=== PATIENT | female | born 1980 | race American Indian/Alaskan Native ===

== ENCOUNTER 2017-01-11 16:19 | Emergency (ER) | payer OTHER ==
[2017-01-11 16:39] VITALS: BP 117/75
[2017-01-11] MEDS ORDERED: MOTRIN PO ONE (18:39)
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
== END 2017-01-11 20:24 | disposition home or self-care (01) ==
LOC: ED 16:19
DX: S39.012A Strain of muscle, fascia and tendon of lower back, initial encounter (principal); S13.4XXA Sprain of ligaments of cervical spine, initial encounter; V89.2XXA Person injured in unspecified motor-vehicle accident, traffic, initial encounter; Y93.89 Activity, other specified; Y92.89 Other specified places as the place of occurrence of the external cause; Y99.8 Other external cause status
CPT/HCPCS: 99283

== ENCOUNTER 2017-09-06 11:02 | Emergency (ER) | payer SELFPAY ==
[2017-09-06 11:34] VITALS: BP 120/72
--- NOTE | 2017-09-06 13:42 | Emergency Department Report ---
HPI - General Chief Complaint: Headache Time Seen by Provider: 09/06/17 13:20 - HPI HPI: 37-year-old demented female presents to the emergency department with complaint of a 1.5 week history of some intermittent headaches and intermittent dizziness. She says that when the headaches occur that they're quite painful and are sometimes responsive to ibuprofen. She also says that when she gets dizziness/lightheadedness sometimes it feels as if the world is spinning and that she might fall down. However currently the patient says that she is asymptomatic. There are no known aggravating factors that initiate the symptoms. She denies any vision change, slurred speech or any other neurological deficits. She denies any past medical history. She does not have a primary care physician. She denies any tobacco or illicit drug use. ED Past Medical Hx - Past Medical History Previous Medical History?: No - Surgical History Past Surgical History?: No - Social History Smoking Status: Never Smoker Substance Use Type: None - Medications Home Medications: Home Medications Medication Instructions Recorded Confirmed Last Taken Type Cyclobenzaprine [Flexeril] 10 mg PO TID PRN #15 tablet 01/11/17 Unknown Rx Ibuprofen [Motrin 600 MG tab] 600 mg PO Q8H PRN #15 tablet 01/11/17 Unknown Rx Meclizine [Antivert] 12.5 mg PO BID PRN #20 tablet 09/06/17 Unknown Rx ED Review of Systems ROS: Stated complaint: MCGINNIS/DIZZY Other details as noted in HPI Comment: All other systems reviewed and negative Constitutional: denies: chills, fever Eyes: denies: eye pain, eye discharge, vision change ENT: denies: ear pain, throat pain Respiratory: denies: cough, shortness of breath, wheezing Cardiovascular: denies: chest pain, palpitations Gastrointestinal: denies: abdominal pain, nausea, diarrhea Genitourinary: denies: urgency, dysuria, discharge Musculoskeletal: denies: back pain, joint swelling, arthralgia Skin: denies: rash, lesions Neurological: headache (intermittent), vertigo, other (intermittent dizziness) Physical Exam - Physical Exam Vital Signs: Vital Signs 09/06/17 11:31 Temperature 98.5 F Pulse Rate 82 Respiratory 16 Rate Blood Pressure 120/72 O2 Sat by Pulse 99 Oximetry Physical Exam: GENERAL: The patient is well-developed well-nourished. HENT: Normocephalic. Atraumatic. Patient has moist mucous membranes. EYES: Extraocular motions are intact. Pupils equal reactive to light bilaterally. No nystagmus. NECK: Supple. Trachea is midline. CHEST/LUNGS: Clear to auscultation. There is no respiratory distress noted. HEART/CARDIOVASCULAR: Regular. There is no tachycardia. There is no murmur. ABDOMEN: Abdomen is soft, nontender. Patient has normal bowel sounds. There is no abdominal distention. SKIN: Skin is warm and dry. NEURO: The patient is awake, alert, and oriented. The patient is cooperative. The patient has no focal neurologic deficits. The patient has normal speech and gait. Cranial nerves II through XII grossly intact. No pronator drift. No dysmetria. MUSCULOSKELETAL: There is no tenderness or deformity. There is no limitation range of motion. There is no evidence of acute injury. ED Course Vital Signs 09/06/17 11:31 Temperature 98.5 F Pulse Rate 82 Respiratory 16 Rate Blood Pressure 120/72 O2 Sat by Pulse 99 Oximetry ED Medical Decision Making - Medical Decision Making Patient is currently a symptomatically with her complaints and/or symptoms. She complains of some intermittent headaches but does not appear to have any focal, motor or sensory deficits in her cranial nerves are intact. She complains of some intermittent dizziness and/or vertigo-like symptoms. I will treat her with some Antivert that she can take when the dizziness and/or vertigo -like symptoms occur. Since she is not currently having any headaches and does not have any deficits, did not feel that CT imaging of the head is necessary at this time. Vital signs stable including being afebrile. She will be discharged home with referrals for both primary care and a neurologist. She has been encouraged to return to the ER with any worsening of her symptoms or any acute distress. - Differential Diagnosis vertigo, hypothyroid, URI, Mnire's disease Critical Care Time: No Critical care attestation.: If time is entered above; I have spent that time in minutes in the direct care of this critically ill patient, excluding procedure time. ED Disposition Clinical Impression: Intermittent headache, Dizziness, Vertigo Disposition: DC-01 TO HOME OR SELFCARE Is pt being admited?: No Condition: Stable Instructions: Dizziness (ED), Vertigo (ED), Acute Headache (ED) Additional Instructions: Please follow up with a primary care physician in the next few days. I have given you a referral for a local neurologist, Dr. Del Valle, to follow up regarding your intermittent headaches and some dizziness. Return to the emergency department immediately with any worsening of her symptoms or any acute distress. Prescriptions: Meclizine [Antivert] 12.5 mg PO BID PRN #20 tablet PRN Reason: Vertigo Referrals: LOGAN DEL VALLE MD [Staff Physician] - 3-5 Days JAZMIN GARCIA MD [Staff Physician] - 3-5 Days WARD RIZO MD [Staff Physician] - 3-5 Days Time of Disposition: 13:42
== END 2017-09-06 13:51 | disposition home or self-care (01) ==
LOC: ED 11:02
DX: R51 Headache (principal); R42 Dizziness and giddiness
CPT/HCPCS: 99282

== ENCOUNTER 2017-11-29 08:42 | Emergency (ER) | payer OTHER ==
[2017-11-29 08:49] VITALS: BP 102/64
--- NOTE | 2017-11-29 09:45 | Emergency Department Report ---
HPI - General Chief Complaint: Allergic Reaction Time Seen by Provider: 11/29/17 09:43 - HPI HPI: Patient reported cold symptoms with sore throat for 3 days. Report was within cotton then noted that the sore throat pain and cold symptoms worsen. She says she has seasonal allergies but she was not having any nasal congestion or runny nose prior to this within cotton at her child graduation. Denies any cough, shortness of breath or chest pain. Denies any headache. Sore throat 5 out of 10, feels scratchy, worse with swallowing. She says she took Motrin that did not help. Nothing makes pain to throat better. Patient also reports postnasal drainage ED Past Medical Hx - Past Medical History Previous Medical History?: Yes Additional medical history: Seasonal allergies - Surgical History Past Surgical History?: No - Family History Family history: no significant - Social History Smoking Status: Never Smoker Substance Use Type: Non Opiate Pain, Other Other Social History: Patient is and lives with family - Medications Home Medications: Home Medications Medication Instructions Recorded Confirmed Last Taken Type Cyclobenzaprine [Flexeril] 10 mg PO TID PRN #15 tablet 01/11/17 Unknown Rx Ibuprofen [Motrin 600 MG tab] 600 mg PO Q8H PRN #15 tablet 01/11/17 Unknown Rx Meclizine [Antivert] 12.5 mg PO BID PRN #20 tablet 09/06/17 Unknown Rx Cetirizine HCl [ZyrTEC] 10 mg PO QAM 14 Days #14 capsule 11/29/17 Unknown Rx Fluticasone [Flonase] 1 spray NS QDAY 14 Days #1 bottle 11/29/17 Unknown Rx ED Review of Systems ROS: Stated complaint: ALLERGIC REACTION Other details as noted in HPI Comment: All other systems reviewed and negative Constitutional: denies: chills, fever Eyes: denies: eye pain, eye discharge ENT: throat pain, congestion (runny nose). denies: ear pain, dental pain Respiratory: denies: cough, shortness of breath, SOB with exertion, SOB at rest , stridor, wheezing Cardiovascular: denies: chest pain, palpitations, edema, syncope Gastrointestinal: denies: abdominal pain, nausea, vomiting Musculoskeletal: denies: back pain, joint swelling, arthralgia Skin: denies: rash, pruritus Neurological: denies: headache, abnormal gait, vertigo Physical Exam - Physical Exam Vital Signs: Vital Signs 11/29/17 08:45 Temperature 98.2 F Pulse Rate 76 Respiratory 18 Rate Blood Pressure 102/64 O2 Sat by Pulse 100 Oximetry General: This is a 37-year-old female well-nourished well-developed in no acute distress. Physical Exam: Head: Normocephalic atraumatic Ears:BIateral TM congested without erythema and loss of bony landmarks. Hans EAC with normal exam. No mastoid bone tenderness. Mouth: Moist, no pharyngeal erythema or exudate . UVULA midline and oral airways patent. No peritonsillar abscess. Tongue is normal Neck: Nontender to palpate, supple, normal range of motion. No adenopathy. No c- spine tenderness. Nose: Bilateral nasal mucosa pale and boggy with clear drainage. Maxillary and frontal sinuses non-tender to palpate. Eyes: Bilateral Sclerae and conjunctiva without injection. Bilateral pupils equal and reactive to light. Bilateral lids are normal. Normal accommodation.BEOMI Lungs: Clear to auscultate bilaterally, no rhonchi wheezes or rales. Normal work of breathing and no chest wall tenderness CV: S1, S2. Regular rate and rhythm negative murmur. Capillary refill is less than 3 seconds Abdomen: Nontender to palpation in all quadrants: No guarding or rebound tenderness. Positive bowel sounds in all quadrants Extremity: No clubbing, cyanosis or edema. +2 pulses in all extremities and no neurovascular compromise Skin: Clean dry and intact, no rashes or lesions Psych: Normal mood and behavior ED Course Vital Signs 11/29/17 08:45 Temperature 98.2 F Pulse Rate 76 Respiratory 18 Rate Blood Pressure 102/64 O2 Sat by Pulse 100 Oximetry - Reevaluation(s) Reevaluation #1: 11/29/17 11:06 Patient given Deltasone 60 mg by mouth for allergic rhinitis. ED Medical Decision Making - Medical Decision Making ED course: Diagnosis: 1: Allergic rhinitis 2: Pharyngitis Medication: Patient given prednisone 6 program. Emergency room. Patient will be discharged home with prescription for Flonase and Zyrtec. I discussed the patient he needs to follow up with her primary care physician and 2-3 days. She was understanding the discharge instruction, diagnosis and treatment plan and discharged home in stable condition. Critical care attestation.: If time is entered above; I have spent that time in minutes in the direct care of this critically ill patient, excluding procedure time. ED Disposition Clinical Impression: Allergic rhinitis Qualifiers: Allergic rhinitis trigger: unspecified Allergic rhinitis seasonality: seasonal Qualified Code(s): J30.2 - Other seasonal allergic rhinitis Pharyngitis Qualifiers: Pharyngitis/tonsillitis etiology: unspecified etiology Qualified Code(s): J02.9 - Acute pharyngitis, unspecified Disposition: - TO HOME OR SELFCARE Is pt being admited?: No Does the pt Need Aspirin: No Condition: Stable Instructions: Allergic Rhinitis (ED) Additional Instructions: Please see medication as prescribed Avoid offending agents Primary care follow-up Prescriptions: Cetirizine HCl [ZyrTEC] 10 mg PO QAM 14 Days #14 capsule Fluticasone [Flonase] 1 spray NS QDAY 14 Days #1 bottle Referrals: PRIMARY CARE, [Primary Care Provider] - 2-3 Days Forms: Work/School Release Form(ED)
[2017-11-29] MEDS ORDERED: DELTASONE PO ONE (09:46)
== END 2017-11-29 11:19 | disposition home or self-care (01) ==
LOC: ED 08:42
DX: J30.2 Other seasonal allergic rhinitis (principal); J02.9 Acute pharyngitis, unspecified
CPT/HCPCS: 99282; J7512